=== PATIENT | female | born 1985 | race Caucasian/White ===

== ENCOUNTER 2016-03-29 19:43 | Emergency (ER) | payer OTHER ==
[~2016-03-29] VITALS: Ht 167.6 cm; Wt 59.1 kg
[2016-03-29 19:55] VITALS: BP 113/77; PULSE 101; RESP 18; O2SAT 99
[2016-03-29] MEDS ORDERED: HYDROcodone-APAP 5-325 mg Tablet PO ONE (20:50)
--- NOTE | 2016-03-29 21:30 | ED.REPORT ---
HPI- Female Date of Service Mar 29, 2016 ED Provider: Dr. Chery Pt is a 30 year old female presenting to the ED complaining of erythema and swelling to an abscess on her labia. The pt had the cyst lanced 4 weeks ago and it has now returned. She denies other symptoms at this time. Nursing Notes Stated Complaint: CYST ON LABIA Chief Complaint: General Complaint Nursing Notes Reviewed: Yes Allergies: Coded Allergies: No Known Allergies (Unverified Allergy, 08/09/11) General Time Seen by MD: 21:30 Chief Complaint Other (Labial cyst) Hx Obtained From: Patient Arrived By: Walk-in Sudden in Onset?: No Onset Occurred: Onset unknown Symptom Duration: Since onset Quality: Painful Severity: Current: Moderate Severity: Maximum: Moderate Recent Healthcare: No recent hospitalization, Recent doctor visit Similar Sx Previous: Yes Past Medical History Past Medical History Labial cyst Past Surgical History Labial cyst lanced 4 weeks ago Ambulatory Status Independent Review of Systems Constitutional: Denies: Fever GI: Denies: Vomiting Skin: Reports Rash, Reports Swelling Neurologic: Denies: Weakness Complete sys rev & neg: except as marked. Physical Exam Initial Vital Signs Vital Signs (First) Date Time Temp Pulse Resp B/P Pulse Ox O2 Delivery O2 Flow Rate FiO2 03/29/16 19:55 37.4 101 18 113/77 99 Room Air Initial VS: Reviewed Head / Eyes: Atraumatic, Normocephalic, PERRL ENT: Mucous membranes moist, Conjunctiva normal, No scleral icterus Respiratory: Breath sounds normal, Clear to auscultation, No respiratory distress Cardiovascular: Regular rate & rhythm, Heart sounds normal, Intact distal pulses Abdomen / GI: Soft, Non-tender, No guarding, No rebound, No distention Extremities: Vascular intact, Neuro intact, No swelling, No tenderness Skin: Warm, Dry, No cyanosis Neurologic: Alert, Oriented, Nonfocal Psychiatric: Mood/affect normal, Behavior normal, Normal thought content Female Genitourinary: Water Quality Assistant present, Atraumatic Bartholin labial cyst General/Constitutional: Awake, Alert Distress / Hydration: Positive: Distress moderate Interpretation & Diagnostics Lab Results Interpretation Test 03/29/16 22:42 Procedures Incision & Drainage Abscess I & D Abscess: 4cm x 4cm left labial abscess. Brown, foul smelling pus drained. Packing placed. Time: 22:15 Procedure Performed by: ED physician Consent / Setup / Site Prep: Consent from patient, Time-out performed, Hand hygiene observed, Stand sterile technique, Standard surgical scrub, Sterile drapes applied Location of Abscess: Left labia Local Anesthesia: Lidocaine 2% Pus Drained: Large Irrigation: Copious Post-Procedure / Complications: Packing placed, Culture obtained, Dressing applied, No complications, Condition improved, Tolerated procedure well, Patient stable Re-Eval/Medical Decision Re-Evaluation/Progress #1: Time of Eval: 22:14 Patient Status: Condition improved Re-Evaluation/Progress Note: Performed pelvic exam and I&D of abscess. Re-Evaluation/Progress #2: Time of Eval: 22:38 Patient Status: Condition improved Re-Evaluation/Progress Note: Placed packing in the wound. Pt feels so much better. Discussed plan for discharge. Pt understands and agrees with plan. Consultation : Referral / Consult Name: Bertha Schwartz MD Call Returned at: 22:35 Note: OB. The pt should call Thursday for a follow up. Put in packing tonight, change it tomorrow. Counseled Regarding: Diagnosis, Lab results, Need for follow-up, When/why to return to ED Discharge & Departure Impression: Primary Impression: Labial abscess Disposition: Home Discharge Condition All VS Reviewed: Yes Condition: Improved Patient Instructions: Abscess (ED), Excision of a Bartholin's Cyst (ED) Additional Instructions: Call the gynecology office Thursday morning. Tell the office you were seen in the emergency department and then I spoke with Dr. Schwartz and she would like someone to see you this week to have a Word catheter placed. You need to have the packing replaced tomorrow. You may be seen here or at the urgent care. You will need to have the packing replaced daily until the catheter is placed. Your primary care physician can also perform this procedure. Either way it is essential that you have definitive care. For the infection take Bactrim twice daily for 7 days. For the pain take 1-2 Percocet every 6 hours as needed for pain. We have sent out a culture of the fluid that was drained. This too needs to be followed up with. Do not drive or drink alcohol or consume acetaminophen while taking the Percocet. Return if any problems or any worsening symptoms. Referrals: Woody Walter MD, Ying MD [facility] Scribe Attestation Portions of this note were transcribed by Debra Fountain. I, Dr. Chery personally performed the history, physical exam and medical decision-making; I reviewed and confirmed the accuracy of the information in the transcribed note. Signed by : Angella Snider, 03/29/2016 and [id number]. copies to: Woody Walter MD; Bertha Schwartz MD; [facility] Luis Chery DO Mar 29, 2016 21:30 [facility] [place] Mar 29, 2016 21:38
[2016-03-29] MEDS ORDERED: Bupivacaine 0.5% 50 mL Inj INFILTRATE ONE (21:35)
[2016-03-29] MEDS ORDERED: Lidocaine 2% 50 mL Inj NERVEBLOCK ONE (21:35)
[2016-03-29] MEDS ORDERED: _oxyCODONE/APAP 5-325 mg Tablet PO PRN (21:35)
[2016-03-29] MEDS ORDERED: Lidocaine 4% 4 mL Laryng-O-Jet Top Soln MUC_MEMBRM ONE (21:35)
[2016-03-29] MEDS ORDERED: Trimethoprim-Sulfa 160 mg-800 mg Tablet PO ONE (22:45)
[2016-03-29 23:00] VITALS: BP 94/61; PULSE 75; RESP 20; O2SAT 99
== END 2016-03-29 23:01 | disposition home or self-care (01) ==
LOC: SED 19:43
DX: N76.4 Abscess of vulva (principal); Z98.890 Other specified postprocedural states